=== PATIENT | male | born 1930 | race Caucasian/White ===

== ENCOUNTER → 2017-01-31 | Outpatient (CLI) | payer MEDICARE, OTHER ==
[~2017-01-31] MED LIST: ATENOLOL PO; COUMADIN PO; DIOVAN PO; LANOXIN PO; LASIX20 MG PO; PREVACID15 MG PO
== END | disposition home or self-care (01) ==
LOC: SLAB 10:55
DX: C61 Malignant neoplasm of prostate (principal)
CPT/HCPCS: 36415; G0103

== ENCOUNTER → 2017-03-23 | Outpatient (CLI) | payer MEDICARE, OTHER ==
[2017-03-23 11:27] LABS: PROTHROMBIN TIME (PATIENT) 23.1 SECONDS (9.5-12.4)
== END | disposition home or self-care (01) ==
LOC: SLAB 10:31
PROVIDERS: Internal Medicine
DX: Z51.81 Encounter for therapeutic drug level monitoring (principal); Z79.01 Long term (current) use of anticoagulants
CPT/HCPCS: 36415; 85610

== ENCOUNTER → 2017-05-24 | Outpatient (CLI) | payer MEDICARE, OTHER ==
[2017-05-24 11:41] LABS: CHOLESTEROL 112 mg/dL (0-200); HDL CHOLESTEROL 34 mg/dL (29-75); LDL CHOLESTEROL 67 mg/dL (-130); LDL/HDL RATIO 2 RATIO (0-4); TRIGLYCERIDES 53 mg/dL (10-160)
== END | disposition home or self-care (01) ==
LOC: SLAB 10:58
PROVIDERS: Internal Medicine
DX: E11.9 Type 2 diabetes mellitus without complications (principal)
CPT/HCPCS: 36415; 80061; 82607; 83036

== ENCOUNTER → 2017-06-02 | Outpatient (CLI) | payer MEDICARE, OTHER ==
[2017-06-02 15:00] LABS: INR 2.4; PROTHROMBIN TIME (PATIENT) 27.8 SECONDS (9.5-12.4)
== END | disposition home or self-care (01) ==
LOC: SLAB 13:29
PROVIDERS: Internal Medicine
DX: I48.91 Unspecified atrial fibrillation (principal)
CPT/HCPCS: 36415; 85610